=== PATIENT | male | born 1960 | race African-American/Black ===

== ENCOUNTER 2018-06-16 12:03 | Inpatient (IN) | payer SELFPAY ==
[~2018-06-16] VITALS: Ht 177.8 cm; Wt 93.2 kg
[2018-06-16] MEDS ORDERED: IV NORMAL SALINE 1,000ML 1,000 ML IV ONE ×3 (13:00→15:15)
--- NOTE | 2018-06-16 13:42 | RAD ---
Chest, PA and Lateral: Technique: PA and lateral views of the chest were obtained. History: Sepsis. Comparison: None. Findings: The heart and pulmonary vasculature appear within normal limits. Mild bibasilar lung airspace opacities likely atelectasis or infiltrates.. The pleural margins are clear. Impression: Mild bibasilar lung airspace opacities likely atelectasis or infiltrates.. Electronically signed by: Brady Cadet MD (06/16/2018 1:39 PM) [facility]
[2018-06-16] MEDS ORDERED: IV NORMAL SALINE 50ML 50 ML ONE (14:19)
[2018-06-16] MEDS ORDERED: cefTRIAXone SODIUM 1 GM VIAL ONE (14:20)
[2018-06-16] MEDS ORDERED: VANCOMYCIN 2 GM in IV NORMAL SALINE 500ML 500 ML IV ONE (14:30)
[2018-06-16 15:32] LABS: ALBUMIN 3.7 g/dL (3.4-5.0); ALBUMIN/GLOBULIN RATIO 0.9 (1.0-1.7); CALCIUM 9.1 mg/dL (8.5-10.1); CREATININE 1.7 mg/dL (0.7-1.3); GFR 50.9; TOTAL BILIRUBIN 0.3 mg/dL (0.2-1.0); TOTAL PROTEIN 7.7 g/dL (6.4-8.2)
[2018-06-16 15:33] LABS: MAGNESIUM 1.8 mg/dL (1.8-2.4)
[2018-06-16 15:36] LABS: BILIRUBIN,URINE NEG (NEG); CLARITY,URINE HAZY; COLOR,URINE AMBER; GLUCOSE,URINE NEG (NEG)
[2018-06-16 15:37] LABS: BACTERIA,URINE MOD /HPF (0-FEW); HYALINE CASTS, URINE FEW /HPF; NITRITE,URINE NEG (NEG); RBC,URINE OCC /HPF (0-2); SPERM,URINE PRESENT /HPF; SQUAMOUS EPITHELIAL CELL,UR FEW /LPF; UROBILINOGEN,URINE 0.2 mg/dL (0.2 mg/dL); WBC,URINE OCC /HPF (0-4)
[2018-06-16 15:42] LABS: BASO # 0.1 x10^3/uL (0.0-0.2); BASO % 1 % (0-3); EOS # 0.1 x10^3/uL (0.0-0.7); EOS % 2 % (0-3); HEMOGLOBIN 16.6 g/dL (13.0-17.5); LYMPH # 1.8 x10^3/uL (1.0-4.8); LYMPH % 31 % (24-48); MEAN CORPUSCULAR HEMOGLOBIN 33 pg (25-35); MEAN CORPUSCULAR HGB CONC 34 g/dL (31-37); MEAN CORPUSCULAR VOLUME 97 fL (79-100); MONO # 0.4 x10^3/uL (0.0-1.1); MONO % 8 % (0-9); NEUT # 3.3 x10^3uL (1.8-7.7); NEUT % 58 % (31-73); PLATELET COUNT 321 x10^3/uL (140-400); RED BLOOD COUNT 5.08 x10^6/uL (4.30-5.70); RED CELL DISTRIBUTION WIDTH 13.9 % (11.5-14.5); WHITE BLOOD COUNT 5.7 x10^3/uL (4.0-11.0)
[2018-06-16 15:49] LABS: AMPHETAMINE/METHAMPHETAMINE NEG (NEG); BARBITURATES NEG (NEG); BENZODIAZEPINES NEG (NEG); CANNABINOIDS NEG (NEG); COCAINE NEG (NEG); METHADONE NEG (NEG); OPIATES NEG (NEG); PHENCYCLIDINE NEG (NEG)
[2018-06-16 15:51] VITALS: BP 133/75
[2018-06-16] MEDS: IV NORMAL SALINE 1,000ML 1,000 ML IV SCH (17:30)
--- NOTE | 2018-06-16 17:52 | HP ---
ADMIT DATE: 06/16/2018 HISTORY OF PRESENT ILLNESS: The patient is a 57-year-old -Luxembourger male patient, a resident at [facility] that he moved in about 6 weeks ago from a facility in [place] where he has been incarcerated for the last 3 years. He apparently was on the medication that he ran out. He has not had any of them for the last 3 weeks and he was seen today at the [facility] to continue his medication. He was evaluated there, found to be hypertensive and was sent to the Emergency Room of [facility] where he was extensively investigated and was found on arrival to be hypertensive. In fact on arrival, his systolic pressure was 182/45 and he was found to have lactic acidosis, although his white cell count was normal. Unfortunately, neither the patient nor the [facility] or his credit administration officer, know his medication. On questioning him further, the patient denied any chest pain or shortness of breath and he was admitted for further evaluation and he has received at least a liter of IV fluid in the Emergency Room and by the time he arrived to the hospital, his blood pressure has much improved to 113/74. PAST MEDICAL HISTORY: Basically unremarkable except that he said that he has a mild heart attack before; however, he is not known to have high blood pressure, diabetes, hyperlipidemia, COPD or any other medical problems. PAST SURGICAL HISTORY: Significant for left rotator cuff repair, jaw fracture, status post open reduction and internal fixation and surgery on his left index finger. ALLERGIES: He has no known drug allergies. MEDICATIONS: Unfortunately, we do not know his home medications. FAMILY HISTORY: He has 2 brothers and 2 sisters, both older and healthy. Both parents have . SOCIAL HISTORY: He has never been ; however, he has son and a daughter. He used to smoke, does not drink alcohol or recreational drugs. 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 REVIEW OF SYSTEMS: Really unremarkable. PHYSICAL EXAMINATION GENERAL: When I examined him, he was resting flat in bed, comfortably in no apparent distress. There is no pallor, jaundice, cyanosis, or thyromegaly. No jugular venous distension. No lower limb edema. VITAL SIGNS: His heart rate was 80, blood pressure 113/74, temperature was 98.6, respiratory rate was 18 and oxygen saturation was 94%. HEAD, EYES, EAR, NOSE, AND THROAT: Showed normocephalic, atraumatic. NECK: Supple. HEART: Showed normal first and second sounds. No gallop, rub or murmur. CHEST: Clear to auscultation. No crepitation or rhonchi. ABDOMEN: Distended, soft, nontender. No guarding or rigidity. No organomegaly. All hernial orifices intact. Bowel sounds normal. NEUROLOGIC: He was awake, alert, responding appropriately. All cranial nerves intact. EXTREMITIES: He moves extremities without difficulty. According to him, he was ambulating without assistance or assistive devices. We have been checked his mobility and orthostatic hypotension. LABORATORY DATA: Showed a white cell count 5700, hemoglobin 16.6, hematocrit 49, MCV 97 and platelet count of 321,000. Serum sodium was 140, potassium 4, chloride 102, bicarbonate 24, anion gap of 14, BUN 15, creatinine 1.7, estimated GFR was 50 mL per minute. His glucose 122, lactic acid was 4.2, calcium was 9.1, magnesium was 1.8. Total bilirubin, AST, ALT, alkaline phosphatase were normal. Total protein was 7.7, albumin 3.7. His urinalysis was essentially unremarkable and his urine was hazy with a pH of 5.5, specific gravity of 1.025. There was small amount of protein. The urine was negative for glucose, ketones, blood, nitrite and leukocyte esterase and there are occasional rbc's and occasional wbc's. There was moderate amount of bacteria. His toxic screen was essentially negative. He has had a chest x-ray, which showed the heart and pulmonary vasculature showed to be within normal limits. Mild bibasilar lung airspace opacities, likely atelectasis, infiltrate. The pleural margins are clear. IMPRESSION: In summary, this is a 57-year-old -Luxembourger male patient, a resident at [facility], who presented to the Emergency Room with hypotension, was found to have lactic acidosis. He was afebrile. He has no leukocytosis. No obvious focus of infection. I will add at least a troponin to make sure that the patient does not have a heart attack because of low blood pressure, although he denied any chest pain. We will repeat his lactic acid. Continue with IV fluid and decide on further management accordingly. SAMANTHA NUNN MD DR: Sera JOB#: [id number] / [id number]
[2018-06-16 19:03] VITALS: BP 128/68
[2018-06-16] MEDS ORDERED: OLANZapine 2.5 MG TABLET PO PRN (19:15)
--- NOTE | 2018-06-16 22:15 | PDOC ---
Exam Note: Joshua Note: Please also refer to the separate dictated note~for this date of service dictated separately.~Patient seen individually. Discussed the patient with Nursing staff reviewed the chart.~Reviewed interim history and current functioning. Reviewed vital signs,~Labs/ Radiology~and current medications noted below. Continue current treatment with the changes noted in the dictated addendum note Assessment: Vital Signs: Vital Signs Date Time Temp Pulse Resp B/P (MAP) Pulse Ox O2 Delivery O2 Flow Rate FiO2 06/16/18 19:03 98.2 73 18 128/68 (88) 95 Room Air Labs: Laboratory Tests Test 06/16/18 12:28 06/16/18 12:50 06/16/18 16:35 06/16/18 19:40 White Blood Count 5.7 x10^3/uL (4.0-11.0) Red Blood Count 5.08 x10^6/uL (4.30-5.70) Hemoglobin 16.6 g/dL (13.0-17.5) Hematocrit 49.0 % (39.0-53.0) Mean Corpuscular Volume 97 fL (79-100) Mean Corpuscular Hemoglobin 33 pg (25-35) Mean Corpuscular Hemoglobin Concent 34 g/dL (31-37) Red Cell Distribution Width 13.9 % (11.5-14.5) Platelet Count 321 x10^3/uL (140-400) Neutrophils (%) (Auto) 58 % (31-73) Lymphocytes (%) (Auto) 31 % (24-48) Monocytes (%) (Auto) 8 % (0-9) Eosinophils (%) (Auto) 2 % (0-3) Basophils (%) (Auto) 1 % (0-3) Neutrophils # (Auto) 3.3 x10^3uL (1.8-7.7) Lymphocytes # (Auto) 1.8 x10^3/uL (1.0-4.8) Monocytes # (Auto) 0.4 x10^3/uL (0.0-1.1) Eosinophils # (Auto) 0.1 x10^3/uL (0.0-0.7) Basophils # (Auto) 0.1 x10^3/uL (0.0-0.2) Sodium Level 140 mmol/L (136-145) Potassium Level 4.0 mmol/L (3.5-5.1) Chloride Level 102 mmol/L (98-107) Carbon Dioxide Level 24 mmol/L (21-32) Anion Gap 14 (6-14) Blood Urea Nitrogen 15 mg/dL (8-26) Creatinine 1.7 mg/dL (0.7-1.3) H Estimated GFR (Cockcroft-Gault) 50.9 BUN/Creatinine Ratio 9 (6-20) Glucose Level 122 mg/dL (70-99) H Lactic Acid Level 4.2 mmol/L (0.4-2.0) *H 1.4 mmol/L (0.4-2.0) Calcium Level 9.1 mg/dL (8.5-10.1) Magnesium Level 1.8 mg/dL (1.8-2.4) Total Bilirubin 0.3 mg/dL (0.2-1.0) Aspartate Amino Transferase (AST) 21 U/L (15-37) Alanine Aminotransferase (ALT) 34 U/L (16-63) Alkaline Phosphatase 105 U/L (46-116) Troponin I Quantitative < 0.017 ng/mL (0-0.055) 0.231 ng/mL (0-0.055) H 0.417 ng/mL (0-0.055) H Total Protein 7.7 g/dL (6.4-8.2) Albumin 3.7 g/dL (3.4-5.0) Albumin/Globulin Ratio 0.9 (1.0-1.7) L Urine Opiates Screen Neg (NEG) Urine Methadone Screen Neg (NEG) Urine Barbiturates Neg (NEG) Urine Phencyclidine Screen Neg (NEG) Urine Amphetamine/Methamphetamine Neg (NEG) Urine Benzodiazepines Screen Neg (NEG) Urine Cocaine Screen Neg (NEG) Urine Cannabinoids Screen Neg (NEG) Ethyl Alcohol Level < 10 mg/dL (0-10) Urine Ethyl Alcohol Neg (NEG) Urine Collection Type Unknown Urine Color Cecile Urine Clarity Hazy Urine pH 5.5 Urine Specific [place] 1.025 Urine Protein 30 mg/dl (NEG-TRACE) Urine Glucose (UA) Neg mg/dL (NEG) Urine Ketones (Stick) Neg mg/dL (NEG) Urine Blood Neg (NEG) Urine Nitrite Neg (NEG) Urine Bilirubin Neg (NEG) Urine Urobilinogen Dipstick 0.2 mg/dL (0.2 mg/dL) Urine Leukocyte Esterase Neg (NEG) Urine RBC Occ /HPF (0-2) Urine WBC Occ /HPF (0-4) Urine Squamous Epithelial Cells Few /LPF Urine Bacteria Mod /HPF (0-FEW) Urine Hyaline Casts Few /HPF Urine Sperm Present /HPF Current Medications: Meds: Current Medications Sodium Chloride 1,000 ml @ 1,000 mls/hr Q1H ONCE IV Last administered on at 12:31; Start 06/16/18 at 13:00; Stop 06/16/18 at 13:59; Status DC Sodium Chloride 1,000 ml @ 1,000 mls/hr Q1H ONCE IV Last administered on at 13:20; Start 06/16/18 at 14:15; Stop 06/16/18 at 15:14; Status DC Sodium Chloride 1,000 ml @ 1,000 mls/hr Q1H ONCE IV Last administered on at 14:00; Start 06/16/18 at 15:15; Stop 06/16/18 at 16:14; Status DC Ceftriaxone Sodium 1 gm/ Sodium Chloride 50 ml @ 100 mls/hr 1X ONCE IV Last administered on 06/16/18at 13:45; Start 06/16/18 at 14:15; Stop 06/16/18 at 14:45 ; Status DC Vancomycin HCl 2 gm/Sodium Chloride 500 ml @ 250 mls/hr 1X ONCE IV Last administered on 06/16/18at 14:32; Start 06/16/18 at 14:30; Stop 06/16/18 at 16:29 ; Status DC Sodium Chloride 50 ml @ As Directed STK-MED ONCE .ROUTE ; Start 06/16/18 at 14: 19; Stop 06/16/18 at 14:20; Status DC Ceftriaxone Sodium (Rocephin) 1 gm STK-MED ONCE .ROUTE ; Start 06/16/18 at 14:20 ; Stop 06/16/18 at 14:21; Status DC Sodium Chloride 1,000 ml @ 150 mls/hr Q6H40M IV Last administered on at 17:30; Start 06/16/18 at 16:30 Olanzapine (ZyPREXA) 5 mg PRN Q2HR PRN PO psychosis / aggitation; Start at 19:15; Stop 06/16/18 at 19:16; Status DC Olanzapine (ZyPREXA ZYDIS) 5 mg PRN Q2HR PRN PO ANXIETY/AGITATION; Start at 19:30 I have reviewed the current psychotropics carefully including drug interactions. Risk benefit ratio favors no change other than as noted in my dictated progress note. Diagnosis: Problems: (1) Severe sepsis (2) Schizoaffective disorder, bipolar type DI WORTHINGTON MD Jun 16, 2018 22:15
[2018-06-16 23:01] VITALS: BP 121/66
[2018-06-17] MEDS: IV NORMAL SALINE 1,000ML 1,000 ML IV SCH ×3 (00:06→11:21)
[2018-06-17 05:13] VITALS: BP 131/71
[2018-06-17] MEDS: DOCUSATE SODIUM 100 MG CAPSULE PO SCH (08:21)
[2018-06-17] MEDS: POLYETHYLENE GLYCOL 3350 17 GM PACKET. PO SCH (08:21)
--- NOTE | 2018-06-17 09:12 | PDOC2 ---
ROCÍO MADRID PHILOSOPHY AND RELIGION INSTRUCTOR 06/17/18 0912: CONSULT Date of Admission DATE: 06/17/18 TIME: 09:06 Reason for Consult: troponin elevation Problem List Problems Medical Problems: (1) Severe sepsis Status: Acute History of Present Illness Mr Martinez is a 57 year old male recently [facility]. he has apparently been without psych medications for some time and was sent to ED for evaluation. Found to be hypotensive with elevated lactic acid and troponin. He was stated on fluid resuscitation and admitted, consult called. He denies any symptoms or chest discomfort, dyspnea, palpitations, lightheadedness, fever, chills, cough, congestive symptoms, edema, or other symptoms indicating infection. He reports feeling normal other than anxiety. He denies change in functional status. Past Medical History schizophrenia He initially reported possible AL but then changed history to possible stroke. He denies any other significant medical history. He denies any significant surgeries. He reports remote cocaine use greater than 10 years ago. He reports family history of hypertension but no premature coronary disease. Current Medications Current Medications Sodium Chloride 1,000 ml @ 1,000 mls/hr Q1H ONCE IV Last administered on at 12:31; Start 06/16/18 at 13:00; Stop 06/16/18 at 13:59; Status DC Sodium Chloride 1,000 ml @ 1,000 mls/hr Q1H ONCE IV Last administered on at 13:20; Start 06/16/18 at 14:15; Stop 06/16/18 at 15:14; Status DC Sodium Chloride 1,000 ml @ 1,000 mls/hr Q1H ONCE IV Last administered on at 14:00; Start 06/16/18 at 15:15; Stop 06/16/18 at 16:14; Status DC Ceftriaxone Sodium 1 gm/ Sodium Chloride 50 ml @ 100 mls/hr 1X ONCE IV Last administered on 06/16/18at 13:45; Start 06/16/18 at 14:15; Stop 06/16/18 at 14:45 ; Status DC Vancomycin HCl 2 gm/Sodium Chloride 500 ml @ 250 mls/hr 1X ONCE IV Last administered on 06/16/18at 14:32; Start 06/16/18 at 14:30; Stop 06/16/18 at 16:29 ; Status DC Sodium Chloride 50 ml @ As Directed STK-MED ONCE .ROUTE ; Start 06/16/18 at 14: 19; Stop 06/16/18 at 14:20; Status DC Ceftriaxone Sodium (Rocephin) 1 gm STK-MED ONCE .ROUTE ; Start 06/16/18 at 14:20 ; Stop 06/16/18 at 14:21; Status DC Sodium Chloride 1,000 ml @ 150 mls/hr Q6H40M IV Last administered on at 06:39; Start 06/16/18 at 16:30 Olanzapine (ZyPREXA) 5 mg PRN Q2HR PRN PO psychosis / aggitation; Start at 19:15; Stop 06/16/18 at 19:16; Status DC Olanzapine (ZyPREXA ZYDIS) 5 mg PRN Q2HR PRN PO ANXIETY/AGITATION; Start at 19:30 Docusate Sodium (Colace) 100 mg DAILY PO ; Start 06/17/18 at 09:00 Polyethylene Glycol (miraLAX) 17 gm DAILY PO ; Start 06/17/18 at 09:00 Allergies: Coded Allergies: No Known Drug Allergies (Unverified , 06/16/18) Review of System as per HPI or negative by patient report General: Alert, Oriented X3, Cooperative, No acute distress HEENT: Atraumatic, EOMI Lungs: Other (coarse right base otherwise clear) Heart: Regular rate, Normal S1, Normal S2, Other (no obvious murmurs, no gallops, clicks or rubs) Abdomen: Normal bowel sounds, Soft, No tenderness Extremities: No cyanosis, No edema, Normal pulses Neuro: Normal speech, Strength at 5/5 X4 ext Psych/Mental Status: Other (flat affect but responding appropriately) VITALS Vital Signs Date Time Temp Pulse Resp B/P (MAP) Pulse Ox O2 Delivery O2 Flow Rate FiO2 06/17/18 08:00 Room Air 06/17/18 05:13 97.4 68 18 131/71 (91) 98 Labs Laboratory Tests Test 06/16/18 12:28 06/16/18 12:50 06/16/18 16:35 06/16/18 19:40 White Blood Count 5.7 x10^3/uL (4.0-11.0) Red Blood Count 5.08 x10^6/uL (4.30-5.70) Hemoglobin 16.6 g/dL (13.0-17.5) Hematocrit 49.0 % (39.0-53.0) Mean Corpuscular Volume 97 fL (79-100) Mean Corpuscular Hemoglobin 33 pg (25-35) Mean Corpuscular Hemoglobin Concent 34 g/dL (31-37) Red Cell Distribution Width 13.9 % (11.5-14.5) Platelet Count 321 x10^3/uL (140-400) Neutrophils (%) (Auto) 58 % (31-73) Lymphocytes (%) (Auto) 31 % (24-48) Monocytes (%) (Auto) 8 % (0-9) Eosinophils (%) (Auto) 2 % (0-3) Basophils (%) (Auto) 1 % (0-3) Neutrophils # (Auto) 3.3 x10^3uL (1.8-7.7) Lymphocytes # (Auto) 1.8 x10^3/uL (1.0-4.8) Monocytes # (Auto) 0.4 x10^3/uL (0.0-1.1) Eosinophils # (Auto) 0.1 x10^3/uL (0.0-0.7) Basophils # (Auto) 0.1 x10^3/uL (0.0-0.2) Sodium Level 140 mmol/L (136-145) Potassium Level 4.0 mmol/L (3.5-5.1) Chloride Level 102 mmol/L (98-107) Carbon Dioxide Level 24 mmol/L (21-32) Anion Gap 14 (6-14) Blood Urea Nitrogen 15 mg/dL (8-26) Creatinine 1.7 mg/dL (0.7-1.3) Estimated GFR (Cockcroft-Gault) 50.9 BUN/Creatinine Ratio 9 (6-20) Glucose Level 122 mg/dL (70-99) Lactic Acid Level 4.2 mmol/L (0.4-2.0) 1.4 mmol/L (0.4-2.0) Calcium Level 9.1 mg/dL (8.5-10.1) Magnesium Level 1.8 mg/dL (1.8-2.4) Total Bilirubin 0.3 mg/dL (0.2-1.0) Aspartate Amino Transf (AST/SGOT) 21 U/L (15-37) Alanine Aminotransferase (ALT/SGPT) 34 U/L (16-63) Alkaline Phosphatase 105 U/L (46-116) Troponin I Quantitative < 0.017 ng/mL (0-0.055) 0.231 ng/mL (0-0.055) 0.417 ng/mL (0-0.055) Total Protein 7.7 g/dL (6.4-8.2) Albumin 3.7 g/dL (3.4-5.0) Albumin/Globulin Ratio 0.9 (1.0-1.7) Urine Opiates Screen Neg (NEG) Urine Methadone Screen Neg (NEG) Urine Barbiturates Neg (NEG) Urine Phencyclidine Screen Neg (NEG) Urine Amphetamine/Methamphetamine Neg (NEG) Urine Benzodiazepines Screen Neg (NEG) Urine Cocaine Screen Neg (NEG) Urine Cannabinoids Screen Neg (NEG) Ethyl Alcohol Level < 10 mg/dL (0-10) Urine Ethyl Alcohol Neg (NEG) Urine Collection Type Unknown Urine Color Cecile Urine Clarity Hazy Urine pH 5.5 Urine Specific [place] 1.025 Urine Protein 30 mg/dl (NEG-TRACE) Urine Glucose (UA) Neg mg/dL (NEG) Urine Ketones (Stick) Neg mg/dL (NEG) Urine Blood Neg (NEG) Urine Nitrite Neg (NEG) Urine Bilirubin Neg (NEG) Urine Urobilinogen Dipstick 0.2 mg/dL (0.2 mg/dL) Urine Leukocyte Esterase Neg (NEG) Urine RBC Occ /HPF (0-2) Urine WBC Occ /HPF (0-4) Urine Squamous Epithelial Cells Few /LPF Urine Bacteria Mod /HPF (0-FEW) Urine Hyaline Casts Few /HPF Urine Sperm Present /HPF Test 06/17/18 05:48 Troponin I Quantitative 0.807 ng/mL (0-0.055) Images EKG - sinus rhythm, 1st degree AVB, no acute ischemic changes. QTC 402. CXR - Impression: Mild bibasilar lung airspace opacities likely atelectasis or infiltrates.. Assessment/Plan 1. NSTEMI - likely type 2. Check echo for LV function and wall motion. repeat troponin once today to trend. No anginal symptoms. No acute EKG abn. Start aspirin, check lipids. Low dose beta ashanti and monitor closely due to recent hypotension. Await results. Outpatient MPI unless trop continues to elevate or significant echo abn. 2. hypotension secondary to sepsis - BP now normalized after 3 liters IVF. continue to monitor. 3. lactic acidosis - unclear source of infection. CXR questionable for infiltrates. On abx. Lactic acid down to 1.4 after fluid resuscitation. mgmt per PCP 4. chronic kidney disease stage 3, GFR 50s. ? acute component with Cr 1.7. repeat chemistry. 5. questionable history of prior AL 6. Schizoaffective disorder, bipolar type - mgmt per Psych DONELL MARTINEZ MD 06/17/18 2302: CONSULT Assessment/Plan Pt. seen and examined. Agree with above DURABILITY TECHNICIAN note. 57 y.o male with psychiatric illness with severely limited history with Trop elevation of unclear etiology Needs an MPI to rule out occult CAD given his age and smoking history Thanks. will plan for stress in a.m. ROCÍO MADRID APRN Jun 17, 2018 09:12 DONELL MARTINEZ MD Jun 17, 2018 23:02
[2018-06-17 09:29] LABS: CALCIUM 8.2 mg/dL (8.5-10.1); GFR 93.9; POTASSIUM 4.1 mmol/L (3.5-5.1)
[2018-06-17] MEDS: METOPROLOL TART IMMED RELEASE 25 MG TABLET PO SCH ×2 (09:37→21:00)
[2018-06-17] MEDS: ASPIRIN ENTERIC COATED 325 MG TABLET.DR. PO SCH (09:37)
[2018-06-17 10:20] VITALS: BP 129/69
[2018-06-17 15:21] VITALS: BP 125/74
--- NOTE | 2018-06-17 16:05 | CARD ---
MR#: [id number] Date of Study: 06/17/2018 Ordering Physician: ROCÍO MADRID, Referring Physician: SAMANTHA NUNN Tech: Diana Narvaez RDCS APPROVED REPORT EXAM: Two-dimensional and M-mode echocardiogram with Doppler and color Doppler. Other Information Quality : Good INDICATION Non STEMI 2D DIMENSIONS RVDd2.2 (2.9-3.5cm)Left Atrium(2D)4.0 (1.6-4.0cm) IVSd1.0 (0.7-1.1cm)Aortic Root(2D)3.0 (2.0-3.7cm) LVDd5.0 (3.9-5.9cm)PWd0.8 (0.7-1.1cm) LVDs3.6 (2.5-4.0cm)FS (%) 27.1 % SV61.9 mlLVEF(%)52.7 (>50%) Aortic Valve AoV Peak Bryon.113.7cm/sAoV VTI23.3cm AO Peak GR.5.2mmHgAO Mean GR.3mmHg STEVEN (VTI)3.33cm2 Mitral Valve MV E Niurzoog47.4cm/sMV DECEL [id number] MV A Pldqhgxt97.8cm/sE/A Ratio1.4 Tricuspid Valve TR P. Ssziaitt784yl/sRAP [id number] TR Peak Gr.[id number] LEFT VENTRICLE The left ventricle is normal size. There is normal left ventricular wall thickness. Left ventricle sy stolic function is low normal. The Ejection Fraction is 50-55%. There is normal LV segmental wall mot ion. Transmitral Doppler flow pattern is Grade II-pseudonormal filling dynamics. RIGHT VENTRICLE The right ventricle is normal size. The right ventricular systolic function is normal. ATRIA The left atrium is mildly dilated. The right atrium size is normal. The interatrial septum is intact with no evidence for an atrial septal defect or patent foramen ovale as noted on 2-D or Doppler imagi ng. AORTIC VALVE The aortic valve is calcified but opens well. Doppler and Color Flow revealed no significant aortic r egurgitation. There is no significant aortic valvular stenosis. MITRAL VALVE The mitral valve is calcified but opens well. Mitral annular calcification is mild. There is no evide nce of mitral valve prolapse. There is no mitral valve stenosis. Doppler and Color-flow revealed trac e mitral regurgitation. TRICUSPID VALVE The tricuspid valve is normal in structure and function. Doppler and Color Flow revealed trace tricus pid regurgitation. The PA pressure was estimated at 19 mmHg. There is no tricuspid valve stenosis. PULMONIC VALVE The pulmonary valve is normal in structure and function. Doppler and Color Flow revealed mild pulmoni c valvular regurgitation. There is no pulmonic valvular stenosis. GREAT VESSELS The aortic root is normal in size. The ascending aorta is normal in size. The IVC is normal in size a nd collapses >50% with inspiration. PERICARDIAL EFFUSION There is no evidence of significant pericardial effusion. Critical Notification Critical Value: No <Conclusion> The left ventricle is normal size. Left ventricle systolic function is low normal. The Ejection Fraction is 50-55%. There is no significant aortic valvular stenosis. Doppler and Color Flow revealed no significant aortic regurgitation. Doppler and Color-flow revealed trace mitral regurgitation. Doppler and Color Flow revealed trace tricuspid regurgitation. The PA pressure was estimated at 19 mmHg. Signed by : Nikunj Breen MD Electronically Approved : 06/17/2018 16:05:10
[2018-06-17 19:10] VITALS: BP 130/72
--- NOTE | 2018-06-17 20:08 | PN ---
DATE: 06/17/2018 SUBJECTIVE: The patient is resting flat, comfortably in bed, in no apparent distress. He denied any complaint except that he is hearing voices. He has continued to be afebrile, hemodynamically stable. His lab work showed that his troponin has steadily risen up from 0.2-0.8 and dropped down to 0.5. PHYSICAL EXAMINATION: GENERAL: When I examined him, he looked well and was clearly in no apparent respiratory distress. No pallor, jaundice, cyanosis or thyromegaly. No jugular venous distention. No lower limb edema. VITAL SIGNS: His heart rate was 60, blood pressure was 129/69, temperature was 98.2, respiratory rate was 18 and oxygen saturation was 98%. HEAD, EYES, EARS, NOSE AND THROAT: Normocephalic, atraumatic. NECK: Supple. HEART: Showed normal first and second heart sounds. No gallop, rub or murmur. CHEST: Clear to auscultation. No crepitation or rhonchi. ABDOMEN: Distended, soft, nontender. NEUROLOGIC: He was awake, alert, although continued to be delusional and hearing voices. All his cranial nerves are intact. He moves extremities without difficulty. LABORATORY DATA: His lab work this morning showed a serum sodium of 143, potassium 4.1, chloride 110. His bicarbonate 24, anion gap of 9, BUN 11, creatinine 1, estimated GFR was 93 mL per minute. His glucose was 97, calcium was 8.2. ASSESSMENT AND PLAN: Hypertension with metabolic acidosis. I am not really convinced that the patient has any sepsis, concerned that the patient might has right ventricular infarct and that has responded to fluid overload. His cardiac enzymes are consistent probably non-ST segment elevation myocardial infarction. He has also acute kidney injury that has resolved. His creatinine came down from 1.7-1. We have consulted the Cardiology and apparently he has an echocardiogram ordered, but has not been done yet. We will await the result of that and decide on further management accordingly. If obviously echocardiogram showed abnormal right ventricular function or other abnormality, he might require to be transferred to [facility] for cardiac catheterization. SAMANTHA NUNN MD DR: JUAN/tara JOB#: [id number] / [id number]
--- NOTE | 2018-06-17 20:59 | CONS ---
DATE OF CONSULTATION: 06/16/2018 PSYCHIATRIC CONSULTATION This late entry 06/16/2018 covers elements not covered in my initial note. IDENTIFYING DATA: The patient is a 57-year-old -B[place] male seen in bed [address] [facility] for a psychiatric consult requested by Dr. Diaz on account of the patient's schizoaffective disorder, bipolar type. The patient seen individually, discussed with nursing staff on 2 or 3 occasions, reviewed the chart. CHIEF COMPLAINT: "Risperdal did best." The patient responded after I questioned him specifically about his past treatments for psychosis. HISTORY OF PRESENT ILLNESS: The patient has a history of schizoaffective disorder, bipolar type. He is a resident at the [facility] [place] that he moved to about 6 weeks back from the facility in [place] where he had been incarcerated for about 3 years. Apparently, he has run out of his psychotropic medications, none for the past 3 weeks. He was seen at the [facility] earlier on the day of admission 06/16/2018 to continue his medications. They were unable to determine the list. They were unable to confirm his psychotropic medication, but he was found to be hypertensive, sent to the Emergency Room at [facility] and then admitted on the unit. Apparently, the patient's commanding officer traffic division and others do not know his psychotropics. He has otherwise been quite disorganized, paranoid. Reportedly, at the [facility], he was extremely agitated, aggressive, picking up chairs and throwing things according to the information provided to me by the nursing staff. He denies any alcohol or drug abuse history. PAST PSYCHIATRIC HISTORY: As above. MEDICAL HISTORY: Positive for hypertension. PAST SURGICAL HISTORY: Left rotator cuff repair, jaw fracture, status post open reduction and internal fixation surgery, left index finger. DRUG ALLERGIES: Negative. FAMILY HISTORY: Noncontributory for psychiatric problems. SOCIAL HISTORY: No alcohol or drug abuse. MENTAL STATUS EXAMINATION: The patient was seen individually evening of 06/16/2018. He is oriented to himself and situation. Speech has some latency, rapid at times. Abstraction fair, computation impaired. He denies active suicidal or homicidal ideation, but is noted to be quite paranoid. Attention span short. IMPRESSION: Schizoaffective disorder, bipolar type, mixed with psychotic features. Rest diagnoses as above. RECOMMENDATION: Nursing staff said that his prior psychotropic medications from whatever source we are able to obtain including the pharmacy he has used in the past. In the interim, I would suggest starting 1 Zyprexa 5 mg q. 2 hours p.r.n. psychosis, agitation, max 20 mg in 24 hours. The patient may need to be screened by the [facility] for possible hospitalization on the state facility to stabilize him psychiatrically. Dr. Diaz, thank you for the opportunity to participate in your patient's care. DI WORTHINGTON MD DR: NOAH/tara JOB#: [id number] / [id number]
[2018-06-17 22:56] VITALS: BP 125/76
[2018-06-18 06:11] LABS: HEMATOCRIT 46.1 % (39.0-53.0); HEMOGLOBIN 15.4 g/dL (13.0-17.5); RED BLOOD COUNT 4.76 x10^6/uL (4.30-5.70); RED CELL DISTRIBUTION WIDTH 13.9 % (11.5-14.5); WHITE BLOOD COUNT 4.9 x10^3/uL (4.0-11.0)
[2018-06-18 06:12] VITALS: BP 130/70
[2018-06-18 06:36] LABS: CALCIUM 8.8 mg/dL (8.5-10.1); GFR 93.9; POTASSIUM 3.8 mmol/L (3.5-5.1)
[2018-06-18] MEDS ORDERED: REGADENOSON 0.4 MG/5 ML DISP.SYRIN. IV ONE (08:45)
--- NOTE | 2018-06-18 10:06 | PDOC ---
PROGRESS NOTES Diagnosis Problem Problems Medical Problems: (1) Severe sepsis Status: Acute Assessment Problems Medical Problems: (1) Severe sepsis Status: Acute 1. NSTEMI - likely type 2. normal LV function and wall motion by echo. MPI today. 2. hypotension secondary to sepsis - bp normalized. . 3. lactic acidosis - mgmt per PCP 4. acute on chronic kidney disease stage 3, - cr Normalized after fluids 5. Schizoaffective disorder, bipolar type - mgmt per Psych Subjective no new complaints. MPI today Objective Vital Signs Date Time Temp Pulse Resp B/P (MAP) Pulse Ox O2 Delivery O2 Flow Rate FiO2 06/18/18 06:12 97.8 48 16 130/70 (90) 97 Room Air Intake and Output 06/18/18 06:59 Intake Total 1380 ml Output Total 2100 ml Balance -720 ml Intake Oral 1380 ml Output Urine Total 2100 ml Physical Exam gen: awake, alert, no acute distress CV:RRR, no S3S4, no clicks or rubs Lungs: clear abd: + bowel sounds ext: no edema Review of Relevant I have reviewed the following items jordan (where applicable) has been applied. Labs Laboratory Tests Test 06/16/18 12:28 06/16/18 12:50 06/16/18 16:11 06/16/18 16:35 White Blood Count 5.7 x10^3/uL (4.0-11.0) Red Blood Count 5.08 x10^6/uL (4.30-5.70) Hemoglobin 16.6 g/dL (13.0-17.5) Hematocrit 49.0 % (39.0-53.0) Mean Corpuscular Volume 97 fL (79-100) Mean Corpuscular Hemoglobin 33 pg (25-35) Mean Corpuscular Hemoglobin Concent 34 g/dL (31-37) Red Cell Distribution Width 13.9 % (11.5-14.5) Platelet Count 321 x10^3/uL (140-400) Neutrophils (%) (Auto) 58 % (31-73) Lymphocytes (%) (Auto) 31 % (24-48) Monocytes (%) (Auto) 8 % (0-9) Eosinophils (%) (Auto) 2 % (0-3) Basophils (%) (Auto) 1 % (0-3) Neutrophils # (Auto) 3.3 x10^3uL (1.8-7.7) Lymphocytes # (Auto) 1.8 x10^3/uL (1.0-4.8) Monocytes # (Auto) 0.4 x10^3/uL (0.0-1.1) Eosinophils # (Auto) 0.1 x10^3/uL (0.0-0.7) Basophils # (Auto) 0.1 x10^3/uL (0.0-0.2) Sodium Level 140 mmol/L (136-145) Potassium Level 4.0 mmol/L (3.5-5.1) Chloride Level 102 mmol/L (98-107) Carbon Dioxide Level 24 mmol/L (21-32) Anion Gap 14 (6-14) Blood Urea Nitrogen 15 mg/dL (8-26) Creatinine 1.7 mg/dL (0.7-1.3) Estimated GFR (Cockcroft-Gault) 50.9 BUN/Creatinine Ratio 9 (6-20) Glucose Level 122 mg/dL (70-99) Lactic Acid Level 4.2 mmol/L (0.4-2.0) 1.4 mmol/L (0.4-2.0) Calcium Level 9.1 mg/dL (8.5-10.1) Magnesium Level 1.8 mg/dL (1.8-2.4) Total Bilirubin 0.3 mg/dL (0.2-1.0) Aspartate Amino Transf (AST/SGOT) 21 U/L (15-37) Alanine Aminotransferase (ALT/SGPT) 34 U/L (16-63) Alkaline Phosphatase 105 U/L (46-116) Troponin I Quantitative < 0.017 ng/mL (0-0.055) 0.231 ng/mL (0-0.055) Total Protein 7.7 g/dL (6.4-8.2) Albumin 3.7 g/dL (3.4-5.0) Albumin/Globulin Ratio 0.9 (1.0-1.7) Urine Opiates Screen Neg (NEG) Urine Methadone Screen Neg (NEG) Urine Barbiturates Neg (NEG) Urine Phencyclidine Screen Neg (NEG) Urine Amphetamine/Methamphetamine Neg (NEG) Urine Benzodiazepines Screen Neg (NEG) Urine Cocaine Screen Neg (NEG) Urine Cannabinoids Screen Neg (NEG) Ethyl Alcohol Level < 10 mg/dL (0-10) Urine Ethyl Alcohol Neg (NEG) Urine Collection Type Unknown Urine Color Cecile Urine Clarity Hazy Urine pH 5.5 Urine Specific [place] 1.025 Urine Protein 30 mg/dl (NEG-TRACE) Urine Glucose (UA) Neg mg/dL (NEG) Urine Ketones (Stick) Neg mg/dL (NEG) Urine Blood Neg (NEG) Urine Nitrite Neg (NEG) Urine Bilirubin Neg (NEG) Urine Urobilinogen Dipstick 0.2 mg/dL (0.2 mg/dL) Urine Leukocyte Esterase Neg (NEG) Urine RBC Occ /HPF (0-2) Urine WBC Occ /HPF (0-4) Urine Squamous Epithelial Cells Few /LPF Urine Bacteria Mod /HPF (0-FEW) Urine Hyaline Casts Few /HPF Urine Sperm Present /HPF Nasal Screen MRSA (PCR) Negative (Negative) Test 06/16/18 19:40 06/17/18 05:48 06/17/18 10:48 06/18/18 05:33 Troponin I Quantitative 0.417 ng/mL (0-0.055) 0.807 ng/mL (0-0.055) 0.538 ng/mL (0-0.055) Sodium Level 143 mmol/L (136-145) 143 mmol/L (136-145) Potassium Level 4.1 mmol/L (3.5-5.1) 3.8 mmol/L (3.5-5.1) Chloride Level 110 mmol/L (98-107) 109 mmol/L (98-107) Carbon Dioxide Level 24 mmol/L (21-32) 28 mmol/L (21-32) Anion Gap 9 (6-14) 6 (6-14) Blood Urea Nitrogen 11 mg/dL (8-26) 10 mg/dL (8-26) Creatinine 1.0 mg/dL (0.7-1.3) 1.0 mg/dL (0.7-1.3) Estimated GFR (Cockcroft-Gault) 93.9 93.9 Glucose Level 97 mg/dL (70-99) 88 mg/dL (70-99) Calcium Level 8.2 mg/dL (8.5-10.1) 8.8 mg/dL (8.5-10.1) Triglycerides Level 65 mg/dL (0-150) Cholesterol Level 152 mg/dL (0-200) LDL Cholesterol, Calculated 103 mg/dL (0-100) VLDL Cholesterol, Calculated 13 mg/dL (0-40) Non-HDL Cholesterol Calculated 116 mg/dL (0-129) HDL Cholesterol 36 mg/dL (40-60) Cholesterol/HDL Ratio 4.0 White Blood Count 4.9 x10^3/uL (4.0-11.0) Red Blood Count 4.76 x10^6/uL (4.30-5.70) Hemoglobin 15.4 g/dL (13.0-17.5) Hematocrit 46.1 % (39.0-53.0) Mean Corpuscular Volume 97 fL (79-100) Mean Corpuscular Hemoglobin 32 pg (25-35) Mean Corpuscular Hemoglobin Concent 34 g/dL (31-37) Red Cell Distribution Width 13.9 % (11.5-14.5) Platelet Count 228 x10^3/uL (140-400) Microbiology 06/16/18 Blood Culture - Preliminary, Resulted NO GROWTH AFTER 1 DAY... Medications Current Medications Sodium Chloride 1,000 ml @ 1,000 mls/hr Q1H ONCE IV Last administered on at 12:31; Start 06/16/18 at 13:00; Stop 06/16/18 at 13:59; Status DC Sodium Chloride 1,000 ml @ 1,000 mls/hr Q1H ONCE IV Last administered on at 13:20; Start 06/16/18 at 14:15; Stop 06/16/18 at 15:14; Status DC Sodium Chloride 1,000 ml @ 1,000 mls/hr Q1H ONCE IV Last administered on at 14:00; Start 06/16/18 at 15:15; Stop 06/16/18 at 16:14; Status DC Ceftriaxone Sodium 1 gm/ Sodium Chloride 50 ml @ 100 mls/hr 1X ONCE IV Last administered on 06/16/18at 13:45; Start 06/16/18 at 14:15; Stop 06/16/18 at 14:45 ; Status DC Vancomycin HCl 2 gm/Sodium Chloride 500 ml @ 250 mls/hr 1X ONCE IV Last administered on 06/16/18at 14:32; Start 06/16/18 at 14:30; Stop 06/16/18 at 16:29 ; Status DC Sodium Chloride 50 ml @ As Directed STK-MED ONCE .ROUTE ; Start 06/16/18 at 14: 19; Stop 06/16/18 at 14:20; Status DC Ceftriaxone Sodium (Rocephin) 1 gm STK-MED ONCE .ROUTE ; Start 06/16/18 at 14:20 ; Stop 06/16/18 at 14:21; Status DC Sodium Chloride 1,000 ml @ 150 mls/hr Q6H40M IV Last administered on at 11:21; Start 06/16/18 at 16:30; Stop 06/17/18 at 12:50; Status DC Olanzapine (ZyPREXA) 5 mg PRN Q2HR PRN PO psychosis / aggitation; Start at 19:15; Stop 06/16/18 at 19:16; Status DC Olanzapine (ZyPREXA ZYDIS) 5 mg PRN Q2HR PRN PO ANXIETY/AGITATION Last administered on 06/17/18at 22:33; Start 06/16/18 at 19:30 Docusate Sodium (Colace) 100 mg DAILY PO ; Start 06/17/18 at 09:00 Polyethylene Glycol (miraLAX) 17 gm DAILY PO ; Start 06/17/18 at 09:00 Aspirin (Aspirin Enteric Coated) 325 mg DAILYWBKFT PO Last administered on 06/17at 09:37; Start 06/17/18 at 09:30 Metoprolol Tartrate (Lopressor) 12.5 mg BID PO Last administered on 06/17/18at 09:37; Start 06/17/18 at 09:30 Regadenoson (Lexiscan) 0.4 mg 1X ONCE IV ; Start 06/18/18 at 08:45; Stop at 08:47; Status DC Vitals/I & O Vital Sign - Last 24 Hours 06/17/18 06/17/18 06/17/18 06/17/18 10:20 15:21 19:10 19:52 Temp 98.2 98.3 98.5 Pulse 60 50 54 Resp 18 20 18 B/P (MAP) 129/69 (89) 125/74 (91) 130/72 (91) Pulse Ox 98 99 97 O2 Delivery Room Air Room Air Room Air Room Air 06/17/18 06/17/18 06/18/18 21:00 22:56 06:12 Temp 98.5 97.8 Pulse 45 60 48 Resp 18 16 B/P (MAP) 130/72 125/76 (92) 130/70 (90) Pulse Ox 99 97 O2 Delivery Room Air Room Air Intake and Output 06/17/18 06/17/18 06/18/18 14:59 22:59 06:59 Intake Total 240 ml 1140 ml 0 ml Output Total 900 ml 1200 ml Balance 240 ml 240 ml -1200 ml ROCÍO MADRID ELECTRIC POWER MACHINE OPERATOR Jun 18, 2018 10:06
[2018-06-18 10:32] VITALS: BP 128/78
[2018-06-18] MEDS: ASPIRIN ENTERIC COATED 325 MG TABLET.DR. PO SCH (12:27)
[2018-06-18] MEDS: DOCUSATE SODIUM 100 MG CAPSULE PO SCH (12:28)
[2018-06-18] MEDS: POLYETHYLENE GLYCOL 3350 17 GM PACKET. PO SCH (12:28)
[2018-06-18] MEDS: METOPROLOL TART IMMED RELEASE 25 MG TABLET PO SCH (12:29)
--- NOTE | 2018-06-18 14:17 | RAD ---
MR#: [id number] Date of Study: 06/18/2018 Ordering Physician: ROCÍO DALY, Referring Physician: UMESH SILVER Tech: RT Sena (R) (N) APPROVED REPORT Test Type: Pharmacological Stress Nurse/Tech: Aria Daly Test Indications: NSTEMI Cardiac History: No known cardiac Resting Heart Rate: 58 bpm Resting Blood Pressure: 137/74mmHg Pretest Chest Pain: None Pharm. Details Pharmacologic stress testing was performed using 0.4mg per 5ml of regadenoson given intravenously ove r 7-10 seconds. POST EXERCISE Reason for Termination: Infusion complete Max HR: 89 bpm Max Blood Pressure: 155/71mmHg Blood Pressure response to exercise: Normal blood pressure response during stress. Heart Rate response to exercise: Normal Chest Pain: No. Arrhythmia: No. ST Change: No. INTERPRETATION Stress EKG Conclusion: Baseline EKG showed sinus rhythm. No ischemic changes at peak stress. No arr hythmias. Imaging Protocol IMAGE PROTOCOL: Rest Tc-99m/stress Tc-99m 1 day Rest: Stress: Viability: Radiopharm.Tc99m [id number] Sestamibi Edhv67cWa 33mCi Duration 20min. 15min. Img Date 06/18/2018 06/18/2018 Inj-Img [id number]. 60min. Rest Admin Site:IV - Right AntecubitalAdministrator: RT Sena (R)(N) Stress Admin Site: IV - Right AntecubitalAdministrator: RT Sena (R)(N) STRESS DATA End Diast. Vol.124.0mlAv. Heart Rate65.0bpm LVEDV index BSA2.0mlCardiac Output0.1L/min End Syst. Vol.39.0mlCO Index BSA5.5L/min LVESV index BSA1.0mlMyocardial Ccuc846.0g Eject. Zpminroq60.0% Stress Rates Pk. Fill Rate2.37EDV/secLVtime Pk. Fill 222.99msec Pk. Empty Rate2.63ESV/secLVtime Pk. Bzaxf536.18msec 1/3 Pk. Fill1.46EDV/sec Stress Scores Regional WT0.00Summed WT0.00 Regional WM0.00Summed WM7.00 Study quality was good. Left Ventricular size was Normal at Rest and Stress. Lung uptake was . Left Ventricular ejection fraction is 69%. The rest and stress images show normal perfusion, normal contraction and thickening. LV Perf. Quant 17 Seg. SSS3.00 17 Seg. SRS14.00 17 Seg. SDS0.00 Stress Defect Extent (% LAD)10.00Rest Defect Extent (% LAD)46.30Rev. Defect Extent (% LAD)0.00 Stress Defect Extent (% LCX) 0.00Rest Defect Extent (% LCX)46.30Rev. Defect Extent (% LCX)0.00 Stress Defect Extent (% RCA)0.00Rest Defect Extent (% RCA)5.60Rev. Defect Extent (% RCA)0.00 Stress Defect Extent (% DANIEL)5.00Rest Defect Extent (% DANIEL)38.30Rev. Defect Extent (% DANIEL)0.00 Conclusion 1. Regadenoson cardioisotope stress test did not show any evidence of ischemia or infarct. 2. Normal left ventricular systolic function with ejection fraction calculated at 69%. 3. Low risk for cardiac events. Signed by : Tray Mcallister, Electronically Approved : 06/18/2018 14:17:09
[2018-06-18 14:23] VITALS: BP 130/73
--- NOTE | 2018-06-23 13:38 | EKG ---
[address] [address] Test Date: 2018-06-17 Test Time: 11:24:38 Pat Name: LIN NARAYAN Department: Room: 109 A Gender: Automat Watcher: : 1960 Requested By: SAMANTHA NUNN Order Number: [id number] Reading MD: Saurabh iWlkes MD Measurements Intervals [place] Rate: P: DE: QRS: QRSD: T: QT: QTc: Interpretive Statements TWO EKG'S SCANNED: EKG AT 11:24 REVEALS SINUS RHYTHM WITH PROBABLE SEPTAL INFARCT EKG AT 11:28 REVEALS R WITH PROBABLE LEAD MISPLACEMENT VERSUS ANTEROLATERAL INFARCT Electronically Signed On 06-24-2018 11:46:23 CLINICAL APPEALS REVIEWER by Saurabh Wilkes MD
--- NOTE | 2018-06-23 13:39 | EKG ---
[address] [address] Test Date: 2018-06-16 Test Time: 17:24:05 Pat Name: LIN NARAYAN Department: Room: 109 A Gender: Extension Educator: : 1960 Requested By: SAMANTHA NUNN Order Number: [id number] Reading MD: Saurabh Wlikes MD Measurements Intervals [place] Rate: P: MT: QRS: QRSD: T: QT: QTc: Interpretive Statements SR NON-SPECIFIC ST/T CHANGES Electronically Signed On 06-24-2018 11:44:35 WOOL CLASSER by Saurabh Wilkes MD
--- NOTE | 2018-07-15 15:15 | DS ---
DATE OF DISCHARGE: 06/18/2018 HOSPITAL COURSE: The patient is a 57-year-old -[place] male patient, a resident at [facility], who [facility] only [facility], who was brought to the Emergency Room of [facility] with hypotension, was found to have lactic acidosis. His cardiac enzymes were elevated. In fact, his initial troponin was normal, but then started rising at 0.23, 0.4, 0.8. We did consult the cardiology team. He was given IV fluid and his blood pressure and lactic acid has resolved. In fact, when he came, he had also acute kidney injury and his creatinine has improved from 1.7 to 1. I suspected that he might have right ventricular infarct that has responded to the IV fluid. However, his echocardiogram showed that his left ventricle is normal in size. His left ventricular systolic function is low normal. His ejection fraction is 50% to 55%. There is no significant aortic valvular stenosis, no significant aortic regurgitation, trace mitral regurgitation, and trace tricuspid regurgitation. His pulmonary artery pressure was estimated at 19 mmHg. The patient has been afebrile. He remained with normal leukocytes throughout his stay. His urine cultures and blood cultures are all negative. PHYSICAL EXAMINATION: GENERAL: On examining him on the day of discharge, he looked well and was clearly in no apparent respiratory distress, slightly pale, but no jaundice, cyanosis, or thyromegaly. No jugular venous distention. No limb edema. VITAL SIGNS: His heart rate was 61, blood pressure was 130/73, temperature was 98.7, respiratory rate 20, and oxygen saturation was 97% on room air. HEAD, EYES, EARS, NOSE AND THROAT: Normocephalic, atraumatic. NECK: Supple. HEART: Showed normal first and second sounds. No gallop, rub or murmur. CHEST: Clear to auscultation. No crepitation or rhonchi. ABDOMEN: Scaphoid, soft, nontender. NEUROLOGIC: He is awake, alert, responding appropriately. Cranial nerves intact. He moves extremities without difficulty. He ambulates without assistance or assistive devices. His intake was 1400, output was 1200. LABORATORY DATA: His lab work on the day of discharge showed a white cell count 4900, hemoglobin 15, hematocrit 46, MCV 97, and platelet count 228,000. Serum sodium 143, potassium 3.8, chloride 109, bicarbonate 28, anion gap of 6, BUN 10, creatinine 1, estimated GFR was 94 mL per minute. His glucose was 88, calcium was 8.8. His serum triglycerides 65, total cholesterol 152, LDL was 103, VLDL was 13, and HDL cholesterol was 36 and the ratio was 4. Urinalysis was unremarkable. Toxic screen was negative. His nasal screen for MRSA by PCR was negative. The patient has stabilized. He was discharged back to [facility] to follow with the [facility] doctor. FINAL DISCHARGE DIAGNOSES: Non-ST segment elevation myocardial infarction, hypotension. I am not really sure that he has any evidence of sepsis. He was afebrile. His white cell count is normal. He was hypotensive and his lactic acidosis is probably type 1 lactic acidosis because of low perfusion; however, never known his medication list as the patient himself, [facility] and his learning and development officer, all of them do not know anything about his medication list. He has acute on chronic kidney disease, resolved. His creatinine came down from 1.7 to 1, schizoaffective disorder for which he was seen by Dr. Reyna. He has coronary artery disease with possible prior myocardial infarction, although I do not have any documentation for that. SAMANTHA NUNN MD DR: JUAN/tara JOB#: [id number] / [id number]
== END 2018-06-18 16:45 | DRG 871 ==
LOC: ER 12:03 → 1 SOUTH 13:30 → EEVIPCON 13:30 → 1 SOUTH 15:13
PROVIDERS: ADMIT Internal Medicine; ATTEND Internal Medicine
DX: A41.9 Sepsis, unspecified organism (principal); I21.4 Non-ST elevation (NSTEMI) myocardial infarction; E87.2 Acidosis; I10 Essential (primary) hypertension; F41.9 Anxiety disorder, unspecified; N18.3 Chronic kidney disease, stage 3 (moderate); F25.0 Schizoaffective disorder, bipolar type; I12.9 Hypertensive chronic kidney disease with stage 1 through stage 4 chronic kidney disease, or unspecified chronic kidney disease; R65.20 Severe sepsis without septic shock; Z87.891 Personal history of nicotine dependence; Z82.49 Family history of ischemic heart disease and other diseases of the circulatory system; I25.2 Old myocardial infarction
CPT/HCPCS: 36415; 71046; 78452; 80048; 80053; 80061; 80307; 81001; 83605; 83735; 84484; 85025; 85027; 87040; 87086; 87641; 93005; 93017; 93306; 96374; 96375; 96376; 99406; A9500; G0480; J0696; J2785; J3370; J7040; J7030